=== PATIENT | male | born 1995 | race Caucasian/White ===

== ENCOUNTER 2019-10-29 17:53 | Emergency (ER) | payer MEDICAID ==
[~2019-10-29] VITALS: Ht 182.9 cm; Wt 83.9 kg
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
[2019-10-29] MEDS ORDERED: ACETAMINOPHEN 325 MG TABLET PO ONE (18:30)
[2019-10-29] MEDS ORDERED: ACETAMINOPHEN ES 500 MG TABLET ONE (18:34)
--- NOTE | 2019-10-29 18:37 | NUR ---
XRAY AT BEDSIDE
--- NOTE | 2019-10-29 19:30 | NUR ---
Patient discharged to home in stable condition. Written and verbal after care instructions given. Patient verbalizes understanding of instruction. Pt ambulatory with a steady gait
[2019-10-29 19:33] VITALS: BP 131/85
== END 2019-10-29 19:30 | disposition home or self-care (01) ==
LOC: ER 17:53
DX: S52.125A Nondisplaced fracture of head of left radius, initial encounter for closed fracture (principal); S52.135A Nondisplaced fracture of neck of left radius, initial encounter for closed fracture; S50.811A Abrasion of right forearm, initial encounter; S80.212A Abrasion, left knee, initial encounter; S80.211A Abrasion, right knee, initial encounter; V00.131A Fall from skateboard, initial encounter; Y93.51 Activity, roller skating (inline) and skateboarding; Y92.89 Other specified places as the place of occurrence of the external cause; Y99.8 Other external cause status
CPT/HCPCS: 73080; 99283; A6403

== ENCOUNTER 2020-09-02 08:46 | Emergency (ER) | payer MEDICAID, OTHER ==
[~2020-09-02] VITALS: Ht 188 cm; Wt 83.9 kg
[2020-09-02 08:53] VITALS: BP 118/69
[2020-09-02] MEDS ORDERED: IBUP-1955 PO (09:43)
--- NOTE | 2020-09-02 10:21 | NUR ---
Patient discharged to home in stable condition. Written and verbal after care instructions given. Patient verbalizes understanding of instruction. The patient left ER in stable condition.
== END 2020-09-02 10:23 | disposition home or self-care (01) ==
LOC: ER 08:46
DX: S93.492A Sprain of other ligament of left ankle, initial encounter (principal); X58.XXXA Exposure to other specified factors, initial encounter; Y93.67 Activity, basketball; Y92.89 Other specified places as the place of occurrence of the external cause; Y99.8 Other external cause status
CPT/HCPCS: 73610-TC; 73630-TC